=== PATIENT | female | born 1975 | race Caucasian/White ===

== ENCOUNTER 2017-11-03 12:35 | Emergency (ER) | payer BC, OTHER ==
[~2017-11-03] VITALS: Ht 162.6 cm; Wt 116.6 kg
== END 2017-11-03 13:06 | disposition home or self-care (01) ==
LOC: ER 12:35
DX: L03.114 Cellulitis of left upper limb (principal); Z88.2 Allergy status to sulfonamides
CPT/HCPCS: 99282